=== PATIENT | female | born 1950 | race Caucasian/White ===

== ENCOUNTER → 2017-02-05 | Outpatient (CLI) | payer MEDICARE, MEDICAID | END | disposition home or self-care (01) | LOC: CARD 13:45 | PROVIDERS: ATTEND Family Medicine | DX: J44.9 Chronic obstructive pulmonary disease, unspecified (principal) | CPT/HCPCS: 94060; 94726; 94729 ==

== ENCOUNTER 2017-11-12 09:39 | Emergency (ER) | payer MEDICARE, MEDICAID ==
[~2017-11-12] VITALS: Ht 162.6 cm; Wt 55.0 kg
[2017-11-12] MEDS ORDERED: MORPHINE SULFATE 4 MG/ML, 1ML ONE (10:27)
[2017-11-12] MEDS ORDERED: ONDANSETRON ODT 4 MG ONE (10:27)
[2017-11-12 10:28] LABS: BASOPHILS # (AUTO) 0.06 x10^3/uL (0-0.1); BASOPHILS % (AUTO) 1 % (0-1); EOSINOPHILS # (AUTO) 0.38 x10^3/uL (0-0.4); EOSINOPHILS % (AUTO) 5 % (1-7); LYMPHOCYTES # (AUTO) 2.08 x10^3/uL (1-3.4); LYMPHOCYTES % (AUTO) 25 % (22-44); MD NO; MEAN CORPUSCULAR HEMOGLOBIN 28.9 pg (27.0-34.8); MEAN CORPUSCULAR HGB CONC 33.2 g/dL (32.4-35.8); MEAN PLATELET VOLUME 7.2 fL (7.4-10.4); MONOCYTES # (AUTO) 0.61 x10^3/uL (0.2-0.8); MONOCYTES % (AUTO) 7 % (2-9); NEUTROPHILS # (AUTO) 5.25 x10^3/uL (1.8-6.8); NEUTROPHILS % (AUTO) 63 % (42-75); PLATELET COUNT 401 x10^3/uL (130-400); RED CELL DISTRIBUTION WIDTH 14.8 % (9.6-15.2)
[2017-11-12] MEDS ORDERED: MORPHINE SULFATE 4 MG/ML, 1ML IVPush PRN (10:30)
[2017-11-12] MEDS ORDERED: ONDANSETRON ODT 4 MG PO ONE (10:30)
[2017-11-12] MEDS ORDERED: SODIUM CHLORIDE FLUSH 10ML SYR IVF ONE (10:30)
[2017-11-12] MEDS ORDERED: SODIUM CHLORIDE 0.9% 1,000ML IV ONE (10:30)
[2017-11-12 10:37] LABS: ALBUMIN 3.7 g/dL (3.4-5.0); ANION GAP 8 mmol/L (5-15); CALCIUM 8.7 mg/dL (8.5-10.1); CHLORIDE 109 mmol/L (98-107)
[2017-11-12 11:53] LABS: MICROSCOPIC INDICATED
[2017-11-12 11:54] LABS: CULTURE INDICATED? YES
[2017-11-12 12:00] VITALS: BP 136/92
== END 2017-11-12 12:41 | disposition home or self-care (01) ==
LOC: ED 12:00
DX: N30.01 Acute cystitis with hematuria (principal); E03.9 Hypothyroidism, unspecified; F17.210 Nicotine dependence, cigarettes, uncomplicated; F20.9 Schizophrenia, unspecified; J44.9 Chronic obstructive pulmonary disease, unspecified; Z88.0 Allergy status to penicillin; Z88.1 Allergy status to other antibiotic agents
CPT/HCPCS: 36415; 71046; 74176; 80048; 81001; 82040; 85025; 87077; 87086; 96361; 96374; 99285; J7030; Q0162; 87186

== ENCOUNTER 2020-03-31 23:05 | Emergency (ER) | payer OTHER, MEDICAID ==
[~2020-03-31] VITALS: Ht 162.6 cm; Wt 50.5 kg
[2020-04-01 00:12] LABS: BASOPHILS # (AUTO) 0.03 x10^3/uL (0-0.1); BASOPHILS % (AUTO) 0 % (0-1); EOSINOPHILS # (AUTO) 0.31 x10^3/uL (0-0.4); EOSINOPHILS % (AUTO) 2 % (1-7); LYMPHOCYTES # (AUTO) 2.01 x10^3/uL (1-3.4); LYMPHOCYTES % (AUTO) 15 % (22-44); MD NO; MEAN CORPUSCULAR HEMOGLOBIN 29.3 pg (27.0-34.8); MEAN CORPUSCULAR HGB CONC 32.1 g/dL (32.4-35.8); MEAN CORPUSCULAR VOLUME 91.2 fL (80-100); MONOCYTES # (AUTO) 0.76 x10^3/uL (0.2-0.8); MONOCYTES % (AUTO) 6 % (2-9); NEUTROPHILS # (AUTO) 10.12 x10^3/uL (1.8-6.8); NEUTROPHILS % (AUTO) 76 % (42-75); PLATELET COUNT 372 x10^3/uL (130-400); RED BLOOD COUNT 4.42 x10^6/uL (3.82-5.3)
[2020-04-01 00:23] LABS: ANION GAP 6 mmol/L (5-15); CALCIUM 9.6 mg/dL (8.5-10.1); CHLORIDE 108 mmol/L (98-107)
--- NOTE | 2020-04-01 01:30 | NUR ---
PLEASANT LADY WALKED TO ROOM AT THIS TIME WITH SIGNIFICANT OTHER, PAIN WITH URINATION FOR SEVERAL DAYS, FLANK PAIN TODAY, NO FEVERS, GROSSLY CLOUDY URINE SPECIMEN COLLECTED AND WALKED TO LAB
[2020-04-01] MEDS ORDERED: HYDR-3343 PO (01:33)
[2020-04-01] MEDS ORDERED: OLAN7.5T3 PO (01:33)
[2020-04-01] MEDS ORDERED: OLAN5TAB3 PO (01:33)
[2020-04-01 01:39] LABS: MICROSCOPIC INDICATED
[2020-04-01] MEDS ORDERED: CEFDINIR 300 MG CAPSULE PO ONE (02:30)
[2020-04-01 02:31] VITALS: BP 138/58
[2020-04-01] MEDS ORDERED: CEFDINIR 300 MG CAPSULE ONE (02:33)
--- NOTE | 2020-04-01 02:37 | NUR ---
Patient/Caregiver given discharge instructions and they have confirmed that they understand the instructions. Patient ambulatory with steady gait.
== END 2020-04-01 02:40 | disposition home or self-care (01) ==
LOC: ED 04-01 02:00
DX: N30.01 Acute cystitis with hematuria (principal); R30.0 Dysuria; R10.30 Lower abdominal pain, unspecified; E03.9 Hypothyroidism, unspecified; F17.200 Nicotine dependence, unspecified, uncomplicated; J44.9 Chronic obstructive pulmonary disease, unspecified
CPT/HCPCS: 36415; 80048; 81001; 85025; 87077; 87086; 87186; 99282; 99283

== ENCOUNTER 2020-06-26 15:49 | Emergency (ER) | payer OTHER, MEDICAID ==
[~2020-06-26] VITALS: Ht 162.6 cm; Wt 52.3 kg
[~2020-06-26 15:49] MED LIST: HYDR-3343 PO; OLAN5TAB3 PO; OLAN7.5T3 PO
--- NOTE | 2020-06-26 16:47 | NUR ---
PT TO ROOM AT THIS TIME. AMBULATORY WITH STEADY GAIT.
--- NOTE | 2020-06-26 16:56 | NUR ---
PATIENT BROUGHT BACK FROM TRIAGE WITH CHIEF COMPLAINT OF INTERMITTENT BLADDER INFECTIONS AND LOW BACK PAIN.
[2020-06-26 17:05] LABS: MICROSCOPIC INDICATED
--- NOTE | 2020-06-26 17:45 | NUR ---
Took report from Elvira RIVERA assume care at this time.
[2020-06-26 18:17] VITALS: BP 112/74
== END 2020-06-26 18:19 | disposition home or self-care (01) ==
LOC: ED 18:00
DX: N30.01 Acute cystitis with hematuria (principal); J44.9 Chronic obstructive pulmonary disease, unspecified
CPT/HCPCS: 81001; 87077; 87086; 87186; 99281; 99282

== ENCOUNTER 2020-12-03 20:02 | Emergency (ER) | payer OTHER, MEDICAID ==
[~2020-12-03] VITALS: Ht 162.6 cm; Wt 51.2 kg
[2020-12-03] MEDS ORDERED: LORazepam 1MG TABLET PO ONE (20:30)
[2020-12-03] MEDS ORDERED: LORazepam 1MG TABLET ONE (20:31)
--- NOTE | 2020-12-03 20:34 | NUR ---
TASK RN: MANAGER PACU PER SEP. XRAY AT BEDSIDE.
[2020-12-03 20:52] LABS: BASOPHILS % (AUTO) 1 % (0-1); EOSINOPHILS % (AUTO) 2 % (1-7); LYMPHOCYTES % (AUTO) 38 % (22-44); MEAN CORPUSCULAR HEMOGLOBIN 30.3 pg (27.0-34.8); MEAN CORPUSCULAR HGB CONC 34.1 g/dL (32.4-35.8); MONOCYTES % (AUTO) 7 % (2-9); NEUTROPHILS % (AUTO) 52 % (42-75); PLATELET COUNT 442 x10^3/uL (130-400); RED BLOOD COUNT 4.76 x10^6/uL (3.82-5.3); RED CELL DISTRIBUTION WIDTH 14.7 % (9.6-15.2)
[2020-12-03 20:53] LABS: MD NO
[2020-12-03 21:03] LABS: ALANINE AMINOTRANSFERASE 27 U/L (12-78); ALBUMIN 4.1 g/dL (3.4-5.0); ANION GAP 5 mmol/L (5-15); CALCIUM 9.5 mg/dL (8.5-10.1); CHLORIDE 110 mmol/L (98-107); CREATININE 0.77 mg/dL (0.55-1.02)
[2020-12-03 21:08] LABS: ALKALINE PHOSPHATASE 99 U/L (45-117); BILIRUBIN,TOTAL 0.2 mg/dL (0.2-1.0); TOTAL PROTEIN 8.2 g/dL (6.4-8.2); TROPONIN I 0.018 ng/mL (0.000-0.045)
[2020-12-03] MEDS ORDERED: ALBUTEROL/IPRATROPIUM 2.5MG/0.5MG, 3 ML ONE (21:08)
[2020-12-03 22:47] VITALS: BP 140/70
--- NOTE | 2020-12-03 22:54 | NUR ---
Patient given discharge instructions and they have confirmed that they understand the instructions. Patient ambulatory with steady gait.
== END 2020-12-03 22:56 | disposition home or self-care (01) ==
LOC: ED 22:55
DX: J44.9 Chronic obstructive pulmonary disease, unspecified (principal); I48.91 Unspecified atrial fibrillation; E03.9 Hypothyroidism, unspecified; F17.200 Nicotine dependence, unspecified, uncomplicated
CPT/HCPCS: 36415; 71045; 80053; 83880; 84484; 85025; 93005; 99283; 99284

== ENCOUNTER 2020-12-06 18:14 | Emergency (ER) | payer OTHER, MEDICAID ==
[~2020-12-06] VITALS: Ht 160 cm; Wt 55.0 kg
[2020-12-06] MEDS ORDERED: OXYcodone/APAP 10/325MG TABLET PO ONE (18:30)
[2020-12-06 18:50] LABS: BASOPHILS % (AUTO) 0 % (0-1); EOSINOPHILS % (AUTO) 0 % (1-7); LYMPHOCYTES % (AUTO) 11 % (22-44); MEAN CORPUSCULAR HEMOGLOBIN 30.1 pg (27.0-34.8); MEAN CORPUSCULAR HGB CONC 33.3 g/dL (32.4-35.8); MEAN PLATELET VOLUME 6.9 fL (7.4-10.4); MONOCYTES % (AUTO) 2 % (2-9); NEUTROPHILS % (AUTO) 87 % (42-75); PLATELET COUNT 424 x10^3/uL (130-400); RED BLOOD COUNT 4.54 x10^6/uL (3.82-5.3); RED CELL DISTRIBUTION WIDTH 14.7 % (9.6-15.2)
--- NOTE | 2020-12-06 18:56 | NUR ---
PT BROUGHT INTO [facility] WITH C/O SOB. PT WAS DC'D ON SATURDAY, WITH MEDICATION AND WAS TOLD IF SHE CONTINUES TO BE SOB TO RETURN TO THE HOSPITAL. PT VSS, PT PLACED ON [employer]. REG/UNLABORED RESP. NADN.
--- NOTE | 2020-12-06 18:58 | NUR ---
REPORT GIVEN TO BELINDA. ALERT AND ORIENTEDNADN.
[2020-12-06] MEDS ORDERED: ONDANSETRON ODT 4 MG PO ONE (19:00)
[2020-12-06 19:04] LABS: ALANINE AMINOTRANSFERASE 25 U/L (12-78); ANION GAP 7 mmol/L (5-15); CHLORIDE 109 mmol/L (98-107); CREATININE 0.82 mg/dL (0.55-1.02)
[2020-12-06 19:08] LABS: ALKALINE PHOSPHATASE 82 U/L (45-117); BILIRUBIN,TOTAL 0.3 mg/dL (0.2-1.0); TOTAL PROTEIN 7.7 g/dL (6.4-8.2); TROPONIN I < 0.015 ng/mL (0.000-0.045)
[2020-12-06 19:31] LABS: MD SCAN
[2020-12-06 21:18] VITALS: BP 145/88
--- NOTE | 2020-12-06 21:21 | NUR ---
Pt left rx bottle of hydroxyzine in room, left message on pt cell phone, attempted to find in lobby. Tubed to pharmacy.
== END 2020-12-06 21:23 | disposition home or self-care (01) ==
LOC: ED 20:16
DX: J44.9 Chronic obstructive pulmonary disease, unspecified (principal); E03.9 Hypothyroidism, unspecified; F17.200 Nicotine dependence, unspecified, uncomplicated; R10.9 Unspecified abdominal pain; Z88.0 Allergy status to penicillin; Z88.1 Allergy status to other antibiotic agents; Z79.2 Long term (current) use of antibiotics
CPT/HCPCS: 36415; 71045; 80053; 84484; 85025; 93005; 99283

== ENCOUNTER 2021-03-15 16:09 | Emergency (ER) | payer MEDICARE, MEDICAID ==
[~2021-03-15] VITALS: Ht 162.6 cm; Wt 43.3 kg
[2021-03-15] MEDS ORDERED: ALBUTEROL/IPRATROPIUM 2.5MG/0.5MG, 3 ML NPPB SCH (16:30)
--- NOTE | 2021-03-15 16:30 | NUR ---
ANDREW WIN [id number].
[2021-03-15] MEDS ORDERED: ALBUTEROL/IPRATROPIUM 2.5MG/0.5MG, 3 ML ONE (16:38)
[2021-03-15 17:06] LABS: BASOPHILS % (AUTO) 1 % (0-1); EOSINOPHILS % (AUTO) 5 % (1-7); LYMPHOCYTES % (AUTO) 32 % (22-44); MEAN CORPUSCULAR HEMOGLOBIN 30.6 pg (27.0-34.8); MEAN CORPUSCULAR HGB CONC 33.8 g/dL (32.4-35.8); MEAN PLATELET VOLUME 7.3 fL (7.4-10.4); MONOCYTES % (AUTO) 6 % (2-9); NEUTROPHILS % (AUTO) 56 % (42-75); PLATELET COUNT 338 x10^3/uL (130-400); RED BLOOD COUNT 4.28 x10^6/uL (3.82-5.3); RED CELL DISTRIBUTION WIDTH 14.3 % (9.6-15.2)
[2021-03-15 17:16] LABS: ALANINE AMINOTRANSFERASE 20 U/L (12-78); ALBUMIN 3.5 g/dL (3.4-5.0); ANION GAP 7 mmol/L (5-15); CALCIUM 8.5 mg/dL (8.5-10.1); CHLORIDE 109 mmol/L (98-107); CREATININE 0.53 mg/dL (0.55-1.02)
[2021-03-15 17:20] LABS: ALKALINE PHOSPHATASE 98 U/L (45-117); BILIRUBIN,TOTAL 0.5 mg/dL (0.2-1.0); TOTAL PROTEIN 7.3 g/dL (6.4-8.2); TROPONIN I < 0.015 ng/mL (0.000-0.045)
[2021-03-15] MEDS ORDERED: POTASSIUM CHLORIDE 20 MEQ PACKET PO ONE (18:00)
[2021-03-15] MEDS ORDERED: POTASSIUM CHLORIDE 20 MEQ PACKET ONE (18:15)
[2021-03-15 18:19] VITALS: BP 137/52
== END 2021-03-15 19:14 | disposition home or self-care (01) ==
LOC: ED 16:39
DX: J43.9 Emphysema, unspecified (principal); F17.210 Nicotine dependence, cigarettes, uncomplicated; I10 Essential (primary) hypertension; R94.31 Abnormal electrocardiogram [ECG] [EKG]; G43.909 Migraine, unspecified, not intractable, without status migrainosus
CPT/HCPCS: 36415; 71045; 80053; 83605; 83880; 84484; 85025; 87040; 93005; 94640; 99285; J7512